=== PATIENT | female | born 1970 | race Caucasian/White ===

== ENCOUNTER → 2020-03-01 12:26 | Outpatient (CLI) | payer OTHER, SELFPAY ==
--- NOTE | 2020-03-01 12:32 | CT_ITS ---
STUDY: CT MAXILLOFACIAL SINUSES REASON FOR EXAM: Female, 49 years old. HEADACHES RADIATION DOSAGE (If Supplied By Facility): CTDIvol = ( 33.06 ) mGy, DLP = ( 751.21 ) mGycm TECHNIQUE: The patient was scanned in a multi detector CT scanner. High resolution axial imaging was performed without the administration of intravenous contrast material. Sagittal and coronal images were reconstructed. Individualized dose optimization techniques were used for this CT. COMPARISON: None. FINDINGS: FRONTAL SINUSES: Normal aeration, without mucosal inflammatory disease. ETHMOIDAL SINUSES: Normal aeration, without mucosal inflammatory disease. MAXILLARY SINUSES: Normal aeration, without mucosal inflammatory disease. SPHENOIDAL SINUSES: Normal aeration, without mucosal inflammatory disease. There is patency of the bilateral maxillary infundibuli with normal uncinate processes, ethmoid bullae, and hiatus semilunaris. Normal bilateral middle turbinates. Normal bilateral inferior turbinates. There is a right sided nasal septal deviation, but without a nasal septal spur. There is patency of the bilateral nasal airways. The visualized osseous structures are normal. The visualized bilateral orbital contents are normal. CT/Sinus/Facial Bone IMPRESSION: Within normal limits CT examination of the maxillofacial sinuses. Electronically Signed: Patrick Rice MD at 16:30 EST , Service support ,
== END ==
PROVIDERS: PCP Family Medicine; Referring Provider Otolaryngology Otolaryngology/Facial Plastic Surgery; Visit Provider Otolaryngology Otolaryngology/Facial Plastic Surgery
DX: R51.9 Headache, unspecified (principal); J32.9 Chronic sinusitis, unspecified
CPT/HCPCS: 70486

== ENCOUNTER 2020-06-17 09:37 | Day surgery (SDC) | payer OTHER, SELFPAY ==
[2016-11-14 05:32] VITALS: BMI 52.9
[2020-06-17] VITALS (8 sets, daily range): BP systolic 111–132; BP diastolic 67–87; PULSE 73–81; RESP 16; TEMP 36.1–36.6; O2SAT 95–99; BMI 61.4
[2020-06-17 11:04] LABS: Internal QC Validated? YES +Cl - CLEAR BKGD; Pregnancy, Urine Negative Negative
--- NOTE | 2020-06-17 11:44 | RAD_ITS ---
PROCEDURE: Caudal block. DATE OF EXAMINATION: 06/17/2020 INDICATION: Female, 49 years old. Chronic low back pain. FLUOROSCOPY TIME (if supplied): (11 seconds) minutes/seconds. Single lateral image was submitted. RAD/Fluor Guidance for Spine Inj IMPRESSION: Intraoperative imaging provided for caudal block. Electronically Signed: Lalito Guan MD at 15:33 EDT , Service support ,
[2020-06-17] MEDS: Bupivacaine 0.25% 30 ML Vial (11:46)
[2020-06-17] MEDS: 0.9% Normal Saline (Pres. free 10 ML Vial (11:46)
[2020-06-17] MEDS: Lidocaine 1% (5 ml sdv) 5 ML Vial (11:46)
[2020-06-17] MEDS: MethylPREDNISolone Acetate 80 MG/ML Vial (11:46)
--- NOTE | 2020-06-17 12:43 | PCM.OPRPT ---
Report of Operation Date of Procedure: 06/17/20 Description of Surgical Findings:: PREOPERATIVE DIAGNOSIS: Lumbosacral radiculopathy, lumbosacral degenerative disc disease, lumbosacral spinal stenosis POSTOPERATIVE DIAGNOSIS: Lumbosacral radiculopathy, lumbosacral degenerative disc disease, lumbosacral spinal stenosis PROCEDURE PERFORMED: Diagnostic/therapeutic caudal epidural steroid injection. ANESTHESIA: MAC. BLOOD LOSS: Minimal. COMPLICATIONS: None. DESCRIPTION OF PROCEDURE: History and physical of today was reviewed. Risks and benefits of the procedure were explained. The patient understood and agreed to proceed. Informed consent was obtained. IV inserted per routine protocol. The patient was taken to the operating room and placed in the prone position with a pillow positioned underneath the abdomen. The lower back and tailbone area was prepped and draped in a sterile fashion using iodine x3. Under fluoroscopy guidance on a lateral view, the caudal space was identified. The skin and subcutaneous tissue was anesthetized with approximately 3 mL of 1% lidocaine using a 25-gauge regular needle. Under direct visualization with fluoroscopy, using a 22-gauge 3-1/2-inch spinal needle, the needle was advanced via the skin through the sacral hiatus. The tip of the needle was passed through the sacrococcygeal ligament and advanced to approximately S4 area. After negative aspiration of blood or CSF, a total of 3 mL of contrast was injected to confirm correct placement of the needle as well as cephalad spread. The spread was followed to approximately L5 area. After confirmation on AP as well as lateral view and repeated negative aspiration, a total of 15 mL of preservative-free 0.125% Marcaine with 80 mg of Depo-Medrol was injected easily. The needle was then removed intact. The patient experienced no sign or symptoms of intrathecal or intravascular injection. The patient experienced no paresthesia. The procedure was completed without any apparent difficulty or any complications. The patient appeared to tolerate it well. ASSESSMENT AND PLAN: With lumbosacral radiculopathy, lumbosacral degenerative disc disease, lumbosacral spinal stenosis status post diagnostic/therapeutic caudal epidural steroid injection patient will continue her current medications, patient will follow in approximately 2 weeks for reevaluation.
[2020-06-17 15:21] LABS: Bedside Glucose 104 mg/dL (70-110)
== END 2020-06-17 13:15 | disposition home or self-care (01) ==
LOC: SDC 09:37 → AC 10:36
PROVIDERS: Anesthesiology; PCP Family Medicine; Referring Provider Anesthesiology Pain Medicine; Visit Provider Anesthesiology Pain Medicine
PROC: 3E0S3BZ Introduction of Anesthetic Agent into Epidural Space, Percutaneous Approach (ICD-10-PCS; CPT 62282; principal; 2020-06-17 11:35)
DX: M51.17 Intervertebral disc disorders with radiculopathy, lumbosacral region (principal); M48.07 Spinal stenosis, lumbosacral region; I10 Essential (primary) hypertension; E11.9 Type 2 diabetes mellitus without complications; Z79.899 Other long term (current) drug therapy; E66.9 Obesity, unspecified; Z68.41 Body mass index [BMI] 40.0-44.9, adult
CPT/HCPCS: 64483; 77003; 81025; 82962; J7120; J3490

== ENCOUNTER 2020-08-06 12:56 | Outpatient (RCR) | payer OTHER, SELFPAY ==
[2020-06-17 11:06] VITALS: BMI 61.4
== END 2020-09-02 23:59 ==
LOC: NS 12:56
PROVIDERS: PCP Family Medicine; Visit Provider Nurse Practitioner Family
DX: Z71.3 Dietary counseling and surveillance (principal); E66.9 Obesity, unspecified; Z68.39 Body mass index [BMI] 39.0-39.9, adult
CPT/HCPCS: 97802

== ENCOUNTER 2020-08-19 08:01 | Day surgery (SDC) | payer OTHER, SELFPAY ==
[2020-06-17 11:06] VITALS: BMI 61.4
[2020-08-19] VITALS (7 sets, daily range): BP systolic 118–131; BP diastolic 59–93; PULSE 70–88; RESP 16–18; TEMP 35.7–35.8; O2SAT 95–100; BMI 59.4
[2020-08-19 08:24] LABS: Internal QC Validated? YES +Cl - CLEAR BKGD
[2020-08-19 08:27] LABS: Pregnancy, Urine Negative Negative
[2020-08-19] MEDS: Lactated Ringers 1,000 ML 100 ML IV (08:39)
[2020-08-19 08:46] LABS: Bedside Glucose 127 mg/dL (70-110)
--- NOTE | 2020-08-19 09:53 | RAD_ITS ---
STUDY: X-RAY - LUMBAR SPINE REASON FOR EXAM: Female, 49 years old. MEDIAL BRANCH NERVE BLOCK L4-S1,BILAT TECHNIQUE: 7 Limited view(s) of the lumbar spine were obtained. COMPARISON: None FINDINGS: 7 limited intraoperative C-arm films were obtained as the patient has undergone bilateral nerve blocks from L4 to S1. No complications noted. RAD/L/S Spine Min 4 Views IMPRESSION: C-arm films of bilateral nerve blocks from L4 to S1 Electronically Signed: Jamison Villagomez MD at 13:29 EDT , Service support ,
[2020-08-19] MEDS: Bupivacaine 0.25% 30 ML Vial (10:03)
[2020-08-19] MEDS: Lidocaine 1% (5 ml sdv) 5 ML Vial (10:03)
--- NOTE | 2020-08-19 16:04 | OP.PCM_ITS ---
Report of Operation Date of Procedure: 08/19/20 Pre-Operative Diagnosis: Lumbosacral spondylosis, lumbosacral degenerative disc disease, lumbar facet arthropathy Post-Operative Diagnosis: Lumbosacral spondylosis, lumbosacral degenerative disc disease, lumbar facet arthropathy Surgery/Procedure Performed:: Diagnostic medial branch block at L4, L5, S1 Description of Surgical Findings:: ANESTHESIA: MAC. BLOOD LOSS: Minimal. COMPLICATIONS: None. DESCRIPTION OF PROCEDURE: History and physical of today was reviewed. Risks and benefits of the procedure were explained. The patient understood and agreed to proceed. Informed consent was obtained. IV inserted per routine protocol. The patient was taken to the operating room and placed in the prone position with a pillow positioned underneath the abdomen. The lower back area was prepped and draped in a sterile fashion using iodine x3. Under fluoroscopy guidance on AP view, the L4 through S1 vertebral bodies were visualized. The skin and subcutaneous tissue was anesthetized with approximately 5 mL of 1% lidocaine using a 25-gauge regular needle. Under direct visualization with fluoroscopy, at approximately 25-degree angle, starting on the left L4, ending on the right L4, passing through the L5 and S1 bilaterally, using a 22-gauge 3-1/2-inch spinal needle, the needle was advanced via the skin. The tip of the needle was maneuvered and directed towards the superior medial gutter of the transverse process at the vicinity of the medial branch. Once tip of the needle was in contact with the bone, the needle was pulled approximately 2 mm off the bone. After negative aspiration for blood or CSF and confirmation on AP, oblique as well as lateral view, a total of 12 mL of preservative-free 0.25% Marcaine was injected in divided doses between those six levels. The needles were then removed intact. The patient experienced no sign or symptoms of intrathecal or intravascular injection. The patient experienced no paresthesia. The procedure was completed without any apparent difficulty or any complicatio ns. The patient appeared to tolerate it well. ASSESSMENT AND PLAN: This is a 49-year-old female with lumbosacral spondylosis, lumbosacral degenerative disc disease, lumbar facet arthropathy status post diagnostic medial branch block at L4-S1, patient will continue current medications, patient will follow in approximately 2 weeks for reevaluation.
--- NOTE | 2020-09-23 16:04 | PCM.OPRPT ---
Report of Operation Date of Procedure: 09/23/20 Description of Surgical Findings:: Original Note: Report of Operation Pre-Operative Diagnosis: Lumbosacral spondylosis, lumbosacral degenerative disc disease, lumbar facet arthropathy Post-Operative Diagnosis: Lumbosacral spondylosis, lumbosacral degenerative disc disease, lumbar facet arthropathy Surgery/Procedure Performed:: Diagnostic medial branch block at L4, L5, S1 Description of Surgical Findings:: ANESTHESIA: MAC. BLOOD LOSS: Minimal. COMPLICATIONS: None. DESCRIPTION OF PROCEDURE: History and physical of today was reviewed. Risks and benefits of the procedure were explained. The patient understood and agreed to proceed. Informed consent was obtained. IV inserted per routine protocol. The patient was taken to the operating room and placed in the prone position with a pillow positioned underneath the abdomen. The lower back area was prepped and draped in a sterile fashion using iodine x3. Under fluoroscopy guidance on AP view, the L4 through S1 vertebral bodies were visualized. The skin and subcutaneous tissue was anesthetized with approximately 5 mL of 1% lidocaine using a 25-gauge regular needle. Under direct visualization with fluoroscopy, at approximately 25-degree angle, starting on the left L4, ending on the right L4, passing through the L5 and S1 bilaterally, using a 22-gauge 3-1/2-inch spinal needle, the needle was advanced via the skin. The tip of the needle was maneuvered and directed towards the superior medial gutter of the transverse process at the vicinity of the medial branch. Once tip of the needle was in contact with the bone, the needle was pulled approximately 2 mm off the bone. After negative aspiration for blood or CSF and confirmation on AP, oblique as well as lateral view, a total of 12 mL of preservative-free 0.25% Marcaine was injected in divided doses between those six levels. The needles were then removed intact. The patient experienced no sign or symptoms of intrathecal or intravascular injection. The patient experienced no paresthesia. The procedure was completed without any apparent difficulty or any complications. The patient appeared to tolerate it well. ASSESSMENT AND PLAN: This is a 50-year-old female with lumbosacral spondylosis, lumbosacral degenerative disc disease, lumbar facet arthropathy status post diagnostic medial branch block at L4-S1, patient will continue current medications, patient will follow in approximately 1 week for reevaluation.
== END 2020-08-19 11:06 ==
LOC: SDC 08:02 → AC 08:03
PROVIDERS: Anesthesiology; PCP Family Medicine; Referring Provider Anesthesiology Pain Medicine; Visit Provider Anesthesiology Pain Medicine
PROC: 3E0T3BZ Introduction of Anesthetic Agent into Peripheral Nerves and Plexi, Percutaneous Approach (ICD-10-PCS; CPT 64493; principal; 2020-08-19 10:15)
DX: M47.816 Spondylosis without myelopathy or radiculopathy, lumbar region (principal); M47.817 Spondylosis without myelopathy or radiculopathy, lumbosacral region; M51.36 Other intervertebral disc degeneration, lumbar region; M51.37 Other intervertebral disc degeneration, lumbosacral region; I10 Essential (primary) hypertension; E11.9 Type 2 diabetes mellitus without complications; Z87.442 Personal history of urinary calculi
CPT/HCPCS: 64493; 64494; 64495; 64483; 72110; 81025; 82962; J7120

== ENCOUNTER 2020-09-23 06:12 | Day surgery (SDC) | payer OTHER, SELFPAY ==
[2020-08-19 08:25] VITALS: BMI 59.4
[2020-09-23 07:01] VITALS: BP 141/81; PULSE 87; RESP 16; TEMP 36.1; O2SAT 96; BMI 61.0
[2020-09-23 07:04] LABS: Internal QC Validated? YES +Cl - CLEAR BKGD; Pregnancy, Urine Negative Negative
[2020-09-23] MEDS: Lactated Ringers 1,000 ML 100 ML IV (07:12)
[2020-09-23 07:20] LABS: Bedside Glucose 130 mg/dL (70-110)
--- NOTE | 2020-09-23 08:51 | RAD_ITS ---
PROCEDURE: Lumbar medial branch nerve block. DATE OF EXAMINATION: 09/23/2020. INDICATION: Female, 50 years old. Chronic back pain. FLUOROSCOPY TIME (if supplied): (17 seconds) minutes/seconds. 5 intraoperative images were obtained. RAD/L/S Spine Min 4 Views IMPRESSION: Intraoperative imaging provided for bilateral L4-S1 lumbar medial branch nerve block. Electronically Signed: Lalito Guan MD at 9:43 EDT , Service support ,
[2020-09-23] MEDS: Bupivacaine 0.25% 30 ML Vial (08:55)
[2020-09-23] MEDS: Lidocaine 1% (5 ml sdv) 5 ML Vial (08:55)
[2020-09-23 09:04] VITALS: BP 129/81; BP 141/81; PULSE 74; RESP 16; TEMP 36.3; O2SAT 97
[2020-09-23 09:09] VITALS: BP 139/78; BP 141/81; PULSE 74; RESP 16; O2SAT 95
[2020-09-23 09:14] VITALS: BP 114/78; BP 141/81; PULSE 79; RESP 16; O2SAT 98
[2020-09-23 09:19] VITALS: BP 113/72; BP 141/81; PULSE 71; RESP 16; TEMP 36.3; O2SAT 99
[2020-09-23 09:55] VITALS: BP 141/81
== END 2020-09-23 09:56 ==
LOC: SDC 06:14 → AC 08:04
PROVIDERS: Anesthesiology; PCP Family Medicine; Referring Provider Anesthesiology Pain Medicine; Visit Provider Anesthesiology Pain Medicine
PROC: 3E0T3BZ Introduction of Anesthetic Agent into Peripheral Nerves and Plexi, Percutaneous Approach (ICD-10-PCS; CPT 64520; principal; 2020-09-23 09:05)
DX: M47.817 Spondylosis without myelopathy or radiculopathy, lumbosacral region (principal); M51.37 Other intervertebral disc degeneration, lumbosacral region; I10 Essential (primary) hypertension; G40.909 Epilepsy, unspecified, not intractable, without status epilepticus; E11.9 Type 2 diabetes mellitus without complications; Z87.442 Personal history of urinary calculi; M54.17 Radiculopathy, lumbosacral region; M46.96 Unspecified inflammatory spondylopathy, lumbar region; Z79.899 Other long term (current) drug therapy
CPT/HCPCS: 01992; 64520 ×3; 64483; 72110; 81025; 82962; J7120

== ENCOUNTER 2020-10-21 06:15 | Day surgery (SDC) | payer OTHER, SELFPAY ==
[2020-10-21] VITALS (7 sets, daily range): BP systolic 103–136; BP diastolic 64–83; PULSE 73–81; RESP 16–18; TEMP 36–36.4; O2SAT 93–100; BMI 60.6
[2020-10-21] MEDS: Lactated Ringers 1,000 ML 100 ML IV (06:45)
[2020-10-21 06:58] LABS: Internal QC Validated? YES +Cl - CLEAR BKGD; Pregnancy, Urine Negative Negative
--- NOTE | 2020-10-21 08:00 | RAD_ITS ---
PROCEDURE: Right L3-S1 radiofrequency ablation. DATE OF EXAMINATION: 10/21/2020. INDICATION: Female, 50 years old. Chronic low back pain. FLUOROSCOPY TIME (if supplied): (24.2 seconds) minutes/seconds. 3 views were submitted. RAD/L/S Spine Min 4 Views IMPRESSION: Intraoperative imaging provided for right L3-S1 radiofrequency ablation. Electronically Signed: Lalito Guan MD at 20:05 EDT , Service support ,
[2020-10-21] MEDS: Lidocaine 1% (30 ml sdv) 30 ML Vial (08:28)
[2020-10-21] MEDS: MethylPREDNISolone Acetate 40 MG/ML Vial IM (08:28)
[2020-10-21] MEDS: Bupivacaine 0.25% 30 ML Vial (08:28)
--- NOTE | 2020-10-21 16:16 | PCM.OPRPT ---
Report of Operation Date of Procedure: 10/21/20 Pre-Operative Diagnosis: Lumbosacral spondylosis, lumbosacral degenerative disc disease, lumbar facet arthropathy Post-Operative Diagnosis: Lumbosacral spondylosis, lumbosacral degenerative disc disease, lumbar facet arthropathy Surgery/Procedure Performed:: Right-sided lumbar radiofrequency ablation of the medial branch L3, L4, L5, S1 Type of Anesthesia: MAC Estimated Blood Loss (mL): Minimal Description of Procedure: History and physical today was reviewed. Risks and benefits of procedure explained. The patient understood, agreed to the procedure and informed consent was obtained. IV inserted per routine protocol. The patient was taken to the operating room, placed in the prone position with a pillow positioned underneath the abdomen. The right side of the lower back was prepped and draped in a sterile fashion using iodine x 3. Under fluoroscopy guidance, on an oblique view, the L3 through S1 vertebral bodies were visualized. The skin and subcutaneous tissue was anesthetized with approximately 10 mL of 1% lidocaine using a 25-gauge regular needle. Under direct visualization with fluoroscopy at approximately 25-degree angle, starting on the right L3, ending on the right S1 passing through the L4-L5 using a 20-gauge 15 cm with a 10 mm curved active tip radiofrequency ablation needle the needle passed through the skin. The tip of the needle was maneuvered and directed towards the superior and medial gutter of the transverse process at the vicinity of the medial branch. Once the tip of the needle was in contact with the bone, the needle pulled approximately 2 mm up the bone. The stylet of each needle was then removed. After negative aspiration of blood with CSF and confirmation of AP as well as oblique view, radiofrequency ablation probe was then inserted at each level. Impedance was then recorded at L3 to be 299, at L4 270, at L5 289, at S1 334 ohm. Motor-evoked potential was then initiated to 1.5 volt without any motor response at each corresponding level. The probe was then removed intact and a total of 6 mL preservative-free 1% lidocaine was injected in divided doses between those 4 levels after negative aspiration of blood with CSF. The radiofrequency ablation probe was then reinserted after confirmation of AP, oblique as well as lateral view. Radiofrequency ablation was then initiated to 80 degrees Celsius for 90 seconds at each level. Once concluded, the probe was then removed intact and a total of 6 mL of preservative-free 0.25% Marcaine with 40 mg Depo-Medrol was injected in divided doses between those 4 levels. The needles were then removed intact. The patient experienced no signs or symptoms of intrathecal, intravascular injection. The patient experienced no paraesthesia. The procedure was completed without any apparent difficulty, any complication. The patient appeared to tolerate well. Sensory as well as motor exam was unchanged from prior to procedure. ASSESSMENT AND PLAN: This is a 50-year-old female with lumbosacral spondylosis, lumbosacral degenerative disc disease, lumbar facet arthropathy, status post right-sided radiofrequency ablation of the medial branch L3 through S1. The patient will continue her current medications. The patient will follow up in approximately 2 weeks for reevaluation. Complications None
== END 2020-10-21 09:45 | disposition home or self-care (01) ==
LOC: SDC 06:16 → AC 06:17
PROVIDERS: Anesthesiology; PCP Family Medicine; Referring Provider Anesthesiology Pain Medicine; Visit Provider Anesthesiology Pain Medicine
PROC: (CPT 64635; principal; 2020-10-21 07:55)
DX: M47.816 Spondylosis without myelopathy or radiculopathy, lumbar region (principal); M47.817 Spondylosis without myelopathy or radiculopathy, lumbosacral region; M51.37 Other intervertebral disc degeneration, lumbosacral region; M89.29 Other disorders of bone development and growth, multiple sites; I10 Essential (primary) hypertension; E11.9 Type 2 diabetes mellitus without complications; E66.9 Obesity, unspecified; Z68.41 Body mass index [BMI] 40.0-44.9, adult; Z79.899 Other long term (current) drug therapy
CPT/HCPCS: 64635; 64636; 72110; 76000; 81025; J7120

== ENCOUNTER 2020-12-23 08:23 | Day surgery (SDC) | payer OTHER, SELFPAY ==
--- NOTE | 2020-12-19 10:35 | PCM.HP.BLA ---
History and Physical Date of Admission: 12/19/20 Chief Complaint: 80% improvement in the right lumbar History of Present Illness: This is a 50 Y/O female who was seen and evaluated at our office today as a follow up. Pain: lower back Quality: Intermittent Region: pain in lower back is more centered Severity: occasional stabbing Timin Aggravated by: walking, standing, and sitting too long Relieved by: laying or sitting down Pain score (out of 10): 0/10 Other info: Patient is here for a follow up-post RFA in the right lumbar spine decreased her pain by 80%.Reports the lower back is doing much better since the ablation.States when she stands for to long or walks far she still feels the stabbing pain.States she was pleased with the result of the ablation.States this has helped more than any procedure has in the past. Review of Systems: Patient denies any recent fever, chills, headache, change in weight without trying, vision or hearing problems. No cp, sob, herrera, pnd, orthopnea, or peripheral edema.They note no lumps or swollen glands, no new rashes, changing moles, or change in bowel or bladder function. Mood has been good overall. Past Medical History: h/o Arthritis h/o hypertension h/o kidney stones h/o seizure disorder h/o foot fracture h/o rt knee injury 05/12/20 h/o diabetes s/p Appendectomy s/p Lithotripsy s/p Caesarean section x2 s/p oz carpal tunnel release Family History: ======== Structured Family History ======== Father: Heart disease, Cancer, Hypertension, Arthritis Mother: Hypertension, Cancer Brother: Hypertension, Diabetes mellitus Sister: Hypertension, Diabetes mellitus Grandparent: Heart disease Social History: [Tobacco: Never smoker Pipe Smoker: No Cigar Smoker: No Chewing Tobacco User: No Electronic Cigarette User: No] Living situation: Occupation: Customer Service Tobacco: Denies EtOH: Denies Rec. drugs: Denies Allergies: No Known Allergies Medications: 1) carBAMazepine 200 mg oral tablet, extended release, Take 1 tablet by mouth once daily 2) hydroCHLOROthiazide 25 mg oral tablet, Take 1 tablet by mouth once daily 3) Ibuprohm 200 mg oral tablet, prn 4) lisinopril 5 mg oral tablet, Take 1 tablet by mouth once daily 5) metFORMIN 500 mg oral tablet, Take 1 tablet by mouth once daily 6) Tylenol Extra Strength 500 mg oral tablet, Take 2 tablet by mouth every 8 hours prn Physical Examination: Wt: 321.6 lb Ht/Ln: 61 in BMI: 60.8 BP: 130/88 Pulse: 89 RR: 16 Temp: 96.8F Pain: 3 Well nourished and well developed in no acute distress. Alert and oriented to person, place and time. Affect is normal and appropriate. Mucosa pink and moist. Respirations even and unlabored. Neck is supple without significant lymphadenopathy or thyromegaly. Abdomen soft & non-tender. No HSM or masses appreciated. Extremities show no cyanosis, clubbing, or edema. Gait is Antalgic. Bilateral lumbar facet loading is positive. Lumbar paraspinal muscle tenderness. Lumbar ROM is limited due to pain. Motor and sensory exam is unchanged. Goals: Health Concerns: Assessment & Plan: # Degeneration of lumbosacral intervertebral disc (M51.37): # Lumbosacral spondylosis (M47.817): # Lumbosacral radiculopathy (M54.17): # Arthropathy of lumbar facet (M46.96): # Body Mass Index BMI 40+ - severely obese (Z68.41): # Long-term current use of drug therapy (Z79.899): Continue current medication regime. OARRS was reviewed today. UDS was reviewed, pt appears compliant SOAPP score is 2 Xray of the lumbar spine was reviewed with the pt today and they appear to understand. There are no signs of diversion or addiction with the pt, there is also no signs of abuse or misuse, continues to do well with their medications without any side effects, we will continue monitoring the pt closely. Reviewed with the pt today our opioid agreement and they appear to understand. PEG was reviewed today. Life style modifications were also discussed today and the pt appears to understand. Weight loss was recommended today through diet and exercise. The pt started the why weight program last week. Risks and benefits of the above meds were discussed with the pt and they appear to understand. The common side effects of the medications were discussed and all of their questions and concerns were answered and they appear to understand Discussed natural and expected course of this diagnosis and need to alert me if symptoms do not follow expected course, or if any worse. Pt is to continue with her PT and HEP. Pt has tried multiple modalities, will schedule the pt for a left radio frequency ablation L3-S1 under fluoroscopy as pt received excellent relief from 2 MBNB We have discussed the risks, benefits as well as alternatives of the procedure and the patient appears to understand and would like to proceed with the above plan. The above plan was discussed today with the pt in details and they appear to understand and agrees to continue with the plan.
[2020-12-23] MEDS: Lactated Ringers 1,000 ML 100 ML IV (08:30)
[2020-12-23 08:39] VITALS: BP 154/87; PULSE 105; RESP 16; TEMP 36.9; O2SAT 98; BMI 60.6
[2020-12-23 08:42] LABS: Internal QC Validated? YES +Cl - CLEAR BKGD; Pregnancy, Urine Negative Negative
--- NOTE | 2020-12-23 09:00 | RAD_ITS ---
PROCEDURE: Radiofrequency ablation. DATE OF EXAMINATION: 12/23/2020. INDICATION: Female, 50 years old. Chronic back pain. FLUOROSCOPY TIME (if supplied): (15 seconds) minutes/seconds. 12 images were obtained. RAD/L/S Spine Min 4 Views IMPRESSION: Intraoperative imaging provided for left L3-S1 radiofrequency ablation. Electronically Signed: Lalito Guan MD at 15:47 EDT , Service support ,
[2020-12-23] MEDS: MethylPREDNISolone Acetate 40 MG/ML Vial IM (09:11)
[2020-12-23] MEDS: Lidocaine 1% (30 ml sdv) 30 ML Vial (09:11)
[2020-12-23] MEDS: Bupivacaine 0.25% 30 ML Vial (09:11)
[2020-12-23 09:25] VITALS: BP 119/71; BP 154/87; PULSE 86; RESP 16; TEMP 36.8; O2SAT 94
[2020-12-23 09:30] VITALS: BP 111/76; BP 154/87; PULSE 82; RESP 16; O2SAT 97
[2020-12-23 09:35] VITALS: BP 111/72; BP 154/87; PULSE 89; RESP 16; O2SAT 95
[2020-12-23 09:39] VITALS: BP 133/75; BP 154/87; PULSE 87; RESP 16; TEMP 36.3; O2SAT 96
[2020-12-23 09:57] VITALS: BP 154/87
--- NOTE | 2020-12-23 14:27 | PCM.OPRPT ---
Report of Operation Date of Procedure: 12/23/20 Pre-Operative Diagnosis: Lumbosacral spondylosis, lumbosacral degenerative disc disease, lumbar facet arthropathy Post-Operative Diagnosis: Lumbosacral spondylosis, lumbosacral degenerative disc disease, lumbar facet arthropathy Surgery/Procedure Performed:: Left-sided lumbar radiofrequency ablation of the medial branch L3, L4, L5, S1 Type of Anesthesia: MAC Estimated Blood Loss (mL): Minimal Description of Procedure: History and physical today was reviewed. Risks and benefits of procedure explained. The patient understood, agreed to the procedure and informed consent was obtained. IV inserted per routine protocol. The patient was taken to the operating room, placed in the prone position with a pillow positioned underneath the abdomen. The left side of the lower back was prepped and draped in a sterile fashion using iodine x 3. Under fluoroscopy guidance, on an oblique view, the L3 through S1 vertebral bodies were visualized. The skin and subcutaneous tissue was anesthetized with approximately 10 mL of 1% lidocaine using a 25-gauge regular needle. Under direct visualization with fluoroscopy at approximately 25-degree angle, starting on the left L3, ending on the left S1 passing through the L4-L5 using a 20-gauge 15 cm with a 10 mm curved active tip radiofrequency ablation needle the needle passed through the skin. The tip of the needle was maneuvered and directed towards the superior and medial gutter of the transverse process at the vicinity of the medial branch. Once the tip of the needle was in contact with the bone, the needle pulled approximately 2 mm up the bone. The stylet of each needle was then removed. After negative aspiration of blood with CSF and confirmation of AP as well as oblique view, radiofrequency ablation probe was then inserted at each level. Impedance was then recorded at L3 to be 276, at L4 283, at L5 340, at S1 319 ohm. Motor-evoked potential was then initiated to 1.5 volt without any motor response at each corresponding level. The probe was then removed intact and a total of 6 mL preservative-free 1% lidocaine was injected in divided doses between those 4 levels after negative aspiration of blood with CSF. The radiofrequency ablation probe was then reinserted after confirmation of AP, oblique as well as lateral view. Radiofrequency ablation was then initiated to 80 degrees Celsius for 90 seconds at each level. Once concluded, the probe was then removed intact and a total of 6 mL of preservative-free 0.25% Marcaine with 40 mg Depo-Medrol was injected in divided doses between those 4 levels. The needles were then removed intact. The patient experienced no signs or symptoms of intrathecal, intravascular injection. The patient experienced no paraesthesia. The procedure was completed without any apparent difficulty, any complication. The patient appeared to tolerate well. Sensory as well as motor exam was unchanged from prior to procedure. ASSESSMENT AND PLAN: This is a 50-year-old female with lumbosacral spondylosis, lumbosacral degenerative disc disease, lumbar facet arthropathy, status post left-sided lumbar radiofrequency ablation of the medial branch L3 through S1. The patient will continue her current medications. The patient will follow up in approximately 2 weeks for reevaluation. Complications None
== END 2020-12-23 10:02 ==
LOC: SDC 08:24 → AC 08:25
PROVIDERS: Anesthesiology; PCP Family Medicine; Referring Provider Anesthesiology Pain Medicine; Visit Provider Anesthesiology Pain Medicine
PROC: (CPT 64635; principal; 2020-12-23 08:55)
DX: M47.816 Spondylosis without myelopathy or radiculopathy, lumbar region (principal); M47.817 Spondylosis without myelopathy or radiculopathy, lumbosacral region; M51.17 Intervertebral disc disorders with radiculopathy, lumbosacral region; M47.27 Other spondylosis with radiculopathy, lumbosacral region; M51.37 Other intervertebral disc degeneration, lumbosacral region; M51.36 Other intervertebral disc degeneration, lumbar region; E11.9 Type 2 diabetes mellitus without complications; E66.01 Morbid (severe) obesity due to excess calories; G40.909 Epilepsy, unspecified, not intractable, without status epilepticus; G89.29 Other chronic pain; I10 Essential (primary) hypertension; Z68.41 Body mass index [BMI] 40.0-44.9, adult; Z79.84 Long term (current) use of oral hypoglycemic drugs; Z82.49 Family history of ischemic heart disease and other diseases of the circulatory system; Z87.442 Personal history of urinary calculi; Z83.3 Family history of diabetes mellitus; Z82.61 Family history of arthritis
CPT/HCPCS: 64635; 64636; 72110; 76000; 81025; J7120

== ENCOUNTER → 2022-03-19 | Outpatient (CLI) | payer OTHER, SELFPAY ==
--- NOTE | 2022-03-19 | IMM_PTH ---
PATIENT: ELEUTERIO HANNA LOC: [facility] U#:[id number] AGE/SX: 51/F ROOM: RE03/19/[address]: Dr. Gee Gagnon MD : 1970 BED: DIS: 03/19/2022 SPEC #: [id number] RECD: 03/23/22 13:34 STATUS: KARIN REQ #: [id number] ZOLTAN: 03/19/22 00:[address]: Gee Gagnon DEPT: IMMUNOHISTOCHEMISTRY RECD BY: Caprice Herrera ENTERED: 03/23/22 13:35 SP TYPE: IMMUNO OTHR DR: Nivia Quezada PA-C Tissues: Endometrium, NOS Procedures: MSH2 (add) MLH-1 (add) MSH6 (add) KI-67 (add) P53 (add) HER-2-LAKSHMI (initial) PHYSICIAN & INSTITUTION [address] [address] SPECIMEN INFORMATION: Tissue Source: Endometrial biopsy Clinical Info: Abnormal uterine bleeding Specimen Number: [id number] CPT code: 60667, 71660 x6 METHODOLOGY: Deparaffinized sections of prefer/formalin-fixed tissue or PAP/DQ stained slides are incubated with monoclonal/polyclonal antibodies/oligonucleotide probes. Localization is made via biotin free immunoperoxidase method. Appropriate controls are performed and reacted as expected. Results on target cell population are indicated in the following table: RESULTS: ANTIBODY / CLONE RESULT Her-2neu (CB11) negative (1+, focal) MLH-1 (M1) positive MSH2 (25D12) positive MSH6 (44) positive PMS2 (RGM1872) positive Ki-67 (30-9) positive, low to moderate P53 (DO-7) positive, weak and low (wild type) These tests were developed and their performance characteristics determined by [facility]. They may not have been cleared or approved by the [place]. Food and Drug Administration. The FDA has determined that such clearance or approval is not necessary. The above immunohistochemical/dualISH markers are ordered and reviewed by the Pathologist. INTERPRETATION: Endometrial biopsy: Endometrial adenocarcinoma. Result of Microsatellite Instability Study: Negative (no loss of mismatch protein; no microsatellite instability detected). SJ:sinan 03/24/2022
--- NOTE | 2022-03-19 | EMB_PTH ---
PATIENT: ELEUTERIO HANNA LOC: [facility] U#:[id number] AGE/SX: 51/F ROOM: RE03/19/[address]: Dr. Gee Gagnon MD : 1970 BED: DIS: 03/19/2022 SPEC #: [id number] RECD: 03/19/22 17:21 STATUS: KARIN REQ #: [id number] ZOLTAN: 03/19/22 00:[address]: Gee Gagnon DEPT: SURGICAL PATHOLOGY RECD BY: Christine Hilton ENTERED: 03/20/22 13:07 SP TYPE: ENDOM BX/C MATT DR: Nivia Quezada PA-C Tissues: Endometrium, NOS Procedures: Surgery Specimen Level IV HEADER OPERATION: Endometrial biopsy PRE-OP DIAGNOSIS: Abnormal uterine bleeding TISSUE SUBMITTED: Endometrial biopsy MICROSCOPIC DIAGNOSIS Endometrial biopsy: Well-differentiated endometrial adenocarcinoma, endometrioid type with focal area of squamous differentiation, FIGO?grade I. See comment. 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 Immunohistochemistry for microsatellite instability/mismatched repair protein will be performed and results will be reported separately ([id number]). Clinical correlation and appropriate follow-up are necessary. Case has been reviewed in consultation with Dr. Valero who concurs with the above diagnosis. IDC:AM MICROSCOPIC DESCRIPTION Slides are reviewed. GROSS DESCRIPTION Received in fixative is one container labeled with the patient's name and designated endometrial biopsy. The specimen consists of multiple irregular fragments of saxena-pink soft tissue that in aggregate measure 3 x 2.5 x 0.3 cm. The specimen is totally submitted in one cassette. / SUSAN:sinan 03/20/2022 TC:0 CPT: 01078
[2022-03-19 17:25] LABS: Absolute Lymphocyte Count 2.49 X10^3/uL (0.83-4.51); Absolute Neutrophil Count 4.4 X10^3/uL (2.0-7.7); Basophil# 0.03 X10^3/uL; Basophil% 0.4 % (0-1); Eosinophil# 0.19 X10^3/uL; Eosinophils% 2.5 % (0-5); Hematocrit 41.7 % (37-47); Hemoglobin 13.1 g/dL (12.0-15.0); Lymphocyte # 2.49 X10^3/ul (0.83-4.51); Lymphocyte % 32.8 % (19-41); Mean Corp Hgb Conc 31.4 g/dL (32-36); Mean Corpuscular Hgb 28.6 pg (27.0-32.0); Mean Platelet Vol. 10.2 fl (6.2-12.0); Monocyte# 0.49 X10^3/uL; Monocyte% 6.5 % (0-10); NRBC Flagged by Analyzer 0 % (0-5); Neutrophil # 4.37 X10^3/uL (2.7-7.7); Neutrophil % 57.5 % (47-70); Platelet Count 300 K/mm3 (150-450); RBC Distribution Width CV 13.4 % (11.6-14.6); RBC Distribution Width SD 44.4 fl (35.1-43.9); Red Blood Count 4.58 M/mm3 (4.2-5.4); White Blood Count 7.6 K/mm3 (4.4-11.0)
[2022-03-19 19:33] LABS: Estradiol 37.5 pg/mL; Follicle Stimulating Hormone 17.5 mIU/mL; Luteinizing Hormone 9.7 mIU/mL; T4 Free Direct 1.28 ng/dL (0.76-1.46); Thyroid Stim Hormone (TSH) 2.09 uIU/mL (0.358-3.74)
[2022-03-27 07:07] LABS: Testosterone, Free 0.47 ng/dL (0.10-0.85); Testosterone, Total 22 ng/dL (4-50)
[2022-03-27 10:44] LABS: Testosterone, % Free 2.12 % (0.50-2.80)
== END | disposition home or self-care (01) ==
PROVIDERS: PCP Family Medicine; Visit Provider Obstetrics & Gynecology
DX: N93.9 Abnormal uterine and vaginal bleeding, unspecified (principal); C54.1 Malignant neoplasm of endometrium
CPT/HCPCS: 36415; 82670; 83001; 83002; 84402; 84403; 84439; 84443; 85025; 88305; 88341; 88342